=== PATIENT | female | born 1995 | race Asian ===

== ENCOUNTER 2019-02-27 23:41 | Emergency (ER) | payer OTHER ==
[~2019-02-27] VITALS: Ht 160 cm; Wt 47.2 kg
--- NOTE | 2019-02-27 23:41 | NUR ---
12-lead EKG done in triage room at 2339 d/t pt c/o chest pain.
[2019-02-27 23:50] VITALS: BP_SYST 118
--- NOTE | 2019-02-27 23:56 | NUR ---
Pt placed to ER waiting room in stable condition. Denies c/o C/P or SOB, VSS, NAD.
--- NOTE | 2019-02-28 00:36 | NUR ---
Patient to ER bed 5 to gown for evaluation. Side rails up. Report given to KALEIGH KAN.
--- NOTE | 2019-02-28 00:40 | NUR ---
Pt BIB mother C/O left sided chest pain x 8 years. Pain is intermittent and increases on inspiration has no cardiac hx. Denies SOB, N/V, diaphoresis or any other symptoms at this time. EKG completed in triage. Will continue to monitor.
--- NOTE | 2019-02-28 01:02 | NUR ---
ER at bedside examining patient.
[2019-02-28 02:49] VITALS: BP_SYST 118
--- NOTE | 2019-02-28 02:50 | NUR ---
Patient given written and verbal discharge instructions and verbalizes understanding. ER MD discussed with patient the results and treatment provided. Patient in stable condition. ID arm band removed. Rx of Motrin and Amoxicillin given. Patient educated on pain management and to follow up with PMD. Pain Scale 0. Opportunity for questions provided and answered. Medication side effect fact sheet provided.
== END 2019-02-28 02:49 | disposition home or self-care (01) ==
LOC: SED 23:41
DX: R07.89 Other chest pain (principal); R09.1 Pleurisy; Z91.018 Allergy to other foods
CPT/HCPCS: 71045; 81025; 99283